=== PATIENT | female | born 1990 | race Two or more races ===

== ENCOUNTER 2021-01-02 00:12 | Emergency (ER) | payer SELFPAY ==
[~2021-01-02] VITALS: Ht 152.4 cm; Wt 47.3 kg
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
[2021-01-02] MEDS ORDERED: KETOROLAC 30 MG/1 ML ONE (01:47)
[2021-01-02 01:51] VITALS: BP 133/98
[2021-01-02] MEDS ORDERED: KETOROLAC 30 MG/1 ML IM ONE (02:00)
--- NOTE | 2021-01-02 02:05 | NUR ---
BEDSIDE REPORT GIVEN TO SOLA [facility]
--- NOTE | 2021-01-02 02:05 | NUR ---
PT STATES SHE IS OUT OF HER EPILEPSY MEDICATIONS.
--- NOTE | 2021-01-02 02:45 | NUR ---
pt could not remember which seizure medications she was taking. upon rounds patient was out of room and eloped from facility. before pt eloped pt was crying appearing to be from friend who was with her.
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
== END 2021-01-02 02:53 | disposition left against medical advice (07) ==
LOC: ED 02:47
DX: G89.11 Acute pain due to trauma (principal); M25.571 Pain in right ankle and joints of right foot; M25.561 Pain in right knee; R00.0 Tachycardia, unspecified; Z72.9 Problem related to lifestyle, unspecified; F15.10 Other stimulant abuse, uncomplicated; F12.10 Cannabis abuse, uncomplicated; F17.210 Nicotine dependence, cigarettes, uncomplicated; Y08.89XA Assault by other specified means, initial encounter; Y93.89 Activity, other specified; Y92.89 Other specified places as the place of occurrence of the external cause; Y99.8 Other external cause status
CPT/HCPCS: 96372; 99283; 99406; J1885